=== PATIENT | male | born 1995 | race African-American/Black ===

== ENCOUNTER 2021-10-15 10:08 | Emergency (ER) | payer OTHER, SELFPAY ==
--- NOTE | ~2021-10-15 | US_ITS ---
EXAMINATION: US SCROTUM CLINICAL INFORMATION: Right testicular swelling. COMPARISON: No prior studies available for comparison TECHNIQUE: A sonogram of the scrotum was performed assessing saul-scale appearance and color Doppler flow. Spectral Doppler analysis of the arterial and venous flow were performed in the testes bilaterally. FINDINGS: RIGHT: Right testicle measures 4.4 x 2 x 2.4 cm, volume 11.1 mL. No focal testicular parenchymal lesions are visualized. Spectral Doppler analysis of the arterial and venous flow is normal in the right testis. Right epididymal head is normal in size. No right hydrocele or varicocele is seen. Right epididymal Doppler flow is normal. LEFT: Left testicle measures 4.4 x 2.1 x 2.7 cm, volume 13.1 mL. No focal testicular parenchymal lesions are visualized. Spectral Doppler analysis of the arterial and venous flow is normal in the left testis. Left epididymal head is normal in size. No left hydrocele or varicocele is seen. Left epididymal Doppler flow is normal. Small left hydrocele. US/US scrotum doppler IMPRESSION: *No ultrasound evidence of intratesticular mass or lesion to explain patient's symptoms. Normal intratesticular flow detected bilaterally. Small left hydrocele.
--- NOTE | ~2021-10-15 | US_ITS ---
EXAMINATION: US SCROTUM CLINICAL INFORMATION: Right testicular swelling. COMPARISON: No prior studies available for comparison TECHNIQUE: A sonogram of the scrotum was performed assessing saul-scale appearance and color Doppler flow. Spectral Doppler analysis of the arterial and venous flow were performed in the testes bilaterally. FINDINGS: RIGHT: Right testicle measures 4.4 x 2 x 2.4 cm, volume 11.1 mL. No focal testicular parenchymal lesions are visualized. Spectral Doppler analysis of the arterial and venous flow is normal in the right testis. Right epididymal head is normal in size. No right hydrocele or varicocele is seen. Right epididymal Doppler flow is normal. LEFT: Left testicle measures 4.4 x 2.1 x 2.7 cm, volume 13.1 mL. No focal testicular parenchymal lesions are visualized. Spectral Doppler analysis of the arterial and venous flow is normal in the left testis. Left epididymal head is normal in size. No left hydrocele or varicocele is seen. Left epididymal Doppler flow is normal. Small left hydrocele. US/US scrotum IMPRESSION: *No ultrasound evidence of intratesticular mass or lesion to explain patient's symptoms. Normal intratesticular flow detected bilaterally. Small left hydrocele.
[2021-10-15 10:15] VITALS: BP 144/99; PULSE 79; RESP 18; TEMP 36.6; O2SAT 98; BMI 27.3
--- NOTE | 2021-10-15 10:36 | ED_ITS ---
HPI - Male Genitourinary General Chief complaint: Urogenital-Male Stated complaint: testicular pain Time Seen by Provider: 10/15/21 10:23 Source: patient Mode of arrival: ambulatory Limitations: no limitations History of Present Illness HPI Narrative: 26-year-old male previously healthy here with reports of intermittent pain and swelling to the right testicle for 2 weeks worsened and more consistent since yesterday. Patient denies any penile discharge, urinary frequency, urgency, dysuria, abdominal pain, back pain, fevers, vomiting. Patient is sexually active with 1 female partner. He does not use any contraception Related Data Allergies Allergy/AdvReac Type Severity Reaction Status Date / Time Unable to Assess Allergy Verified 10/15/21 10:30 Review of Systems Review of Systems: Yes all other systems are reviewed and are negative Constitutional: Constitutional: Reports no additional constitutional complaints, Denies body ache(s), Denies chills, Denies fever(s), Denies headache(s) and Denies weakness Eyes: Eyes: Reports no additional eye complaints and Denies change in vision ENT: Reports system reviewed and no additional complaints, except as documented, Denies dizziness, Denies headache(s), Denies nasal congestion, Denies nasal discharge and Denies neck pain Cardiovascular: Cardiovascular: Reports no additional cardiovascular complaints, Denies chest pain, Denies leg edema and Denies dyspnea Respiratory: Respiratory: Reports no additional respiratory complaints, Denies cough and Denies dyspnea Gastrointestinal: Gastrointestinal: Reports no additional gastrointestinal complaints, Denies abdominal pain, Denies diarrhea, Denies nausea and Denies vomiting Genitourinary: Genitourinary: Denies hematuria, Denies dysuria, Denies flank pain, Denies penile discharge, Reports testicular pain, Denies urinary frequency, Denies urinary hesitancy, Denies urinary incontinence and Denies urinary urgency Musculoskeletal: Musculoskeletal: Reports no additional musculoskeletal complaints, Denies back pain, Denies arthralgias, Denies joint swelling, Denies neck pain, Denies numbness and Denies tingling Integumentary/Breasts: Skin/Breast: Reports system reviewed and no additional complaints, except as docu and Denies rash Neurologic: Reports system reviewed and no additional complaints, except as documented, Denies Abnormal speech present, Denies dizziness, Denies headache(s), Denies numbness, Denies tingling and Denies weakness PMFSH Past Medical History Attestation statement: The following information was validated with the patient. Source: old records reviewed and nursing notes reviewed Social History Social History Advance Directives: No Advance Directives Information Provided: No Physical Exam Vital Signs: Vital Signs: Last Vital Signs Temp 98.3 F 10/15/21 13:01 Pulse 60 10/15/21 13:01 Resp 18 10/15/21 13:01 BP 135/76 10/15/21 13:01 Pulse Ox 100 10/15/21 13:01 O2 Del Method 10/15/21 13:01 BMI result Body Mass Index 27.3 Const: General: cooperative, healthy appearing, comfortable and no acute distress Orientation/consciousness: patient oriented x3 Limitations: no limitations HEENT: Head: Yes normal to inspection Eyes: General: appearance normal, both eyes and all related structures Neck: Neck: Yes normal visual inspection Chest: Chest palpation & inspection: normal inspection of the chest Resp: Effort & Inspection: normal respiratory effort GI: Inspection: Yes normal to inspection : Other: Research Program Manager Bianca Male General Exam: Yes normal external exam Penis: uncircumcised Meatus: meatus normal Scrotum: scrotum normal Testes: no testicular swelling and testicular tenderness (Right-side) Back/Spine/Pelvis: Thoracic/Lumbar Spine: thoracic and lumbar spine normal to inspection Skin: General skin exam: no rashes or lesions noted Neuro: General: patient oriented x3 and moves all extremities Cognition (Neuro): normal cognition Speech: No Abnormal speech present Gait exam (N euro): Normal gait present Extrem: General: Yes normal to inspection Course Course Course Narrative: 26-year-old male here with intermittent right testicular pain for the last 2 weeks that is constant and worsened over the last 24 hours with no associated urinary symptoms, fevers, vomiting, penile discharge. Will check ultrasound, UA, CT NG testing Reevaluation(s) Reevaluation #1: UA shows no signs of infection. CT NG testing is pending. Patient has low concern for STD. He therefore we will hold on treatment. He will need to return if he is positive. Ultrasound shows a left hydrocele. No evidence of torsion or mass. Patient can follow up with Urology for his testicular pain. Reviewed worrisome signs and symptoms of when to return to the emergency department. Comfortable discharge home. Time: 13:30 MDM - Male Genitourinary MDM Narrative Medical decision making narrative: Epididymitis, testicular torsion Medical Records Attestation: I reviewed the patient's medical records. Lab Data Attestation: I reviewed the patient's lab results. Labs: Lab Results 10/15/21 Range/Units 12:52 Urine Color YELLOW Urine Appearance CLEAR Urine pH 6.0 (5.0-8.0) Ur Specific Brun[place] 1.025 (1.005-1.025) Urine Protein NEG (NEG-TRACE) MG/DL Urine Glucose (UA) NEG (NEG) MG/DL Urine Ketones NEG (NEG) MG/DL Urine Blood NEG (NEG) Urine Nitrite NEG (NEG) Ur Leukocyte Esterase NEG (NEG) Imaging Data testicular US: Attestation: I personally reviewed and interpreted this imaging study as follows: Radiologist's impression: [place] [id number] Ultrasound Report Signed Patient: Juan Rodas MR#: [id number] : 1995 Acct:[id number] Age/Sex: 26 / M ADM Date: 10/15/21 Loc: .ED Attending Dr: Ordering Physician: Mary Gauthier NP Date of Service: 10/15/21 Procedure(s): US scrotum doppler Accession Number(s): [id number] cc: Mary Gauthier NP~ EXAMINATION: US SCROTUM CLINICAL INFORMATION: Right testicular swelling. COMPARISON: No prior studies available for comparison TECHNIQUE: A sonogram of the scrotum was performed assessing saul-scale appearance and color Doppler flow. Spectral Doppler analysis of the arterial and venous flow were performed in the testes bilaterally. FINDINGS: RIGHT: Right testicle measures 4.4 x 2 x 2.4 cm, volume 11.1 mL. No focal testicular parenchymal lesions are visualized. Spectral Doppler analysis of the arterial and venous flow is normal in the right testis. Right epididymal head is normal in size. No right hydrocele or varicocele is seen. Right epididymal Doppler flow is normal. LEFT: Left testicle measures 4.4 x 2.1 x 2.7 cm, volume 13.1 mL. No focal testicular parenchymal lesions are visualized. Spectral Doppler analysis of the arterial and venous flow is normal in the left testis. Left epididymal head is normal in size. No left hydrocele or varicocele is seen. Left epididymal Doppler flow is normal. Small left hydrocele. US/US scrotum doppler IMPRESSION: *No ultrasound evidence of intratesticular mass or lesion to explain patient's symptoms. ? Normal intratesticular flow detected bilaterally. ? Small left hydrocele. Discharge Plan Discharge Clinical Impression: Left hydrocele Patient Disposition: Home, Self-Care Instructions: Hydrocele (ED) Additional Instructions: Your urine testing shows no signs of bladder infection. We will call you if your STD testing is positive an you need treatment Follow-up with urology Referrals: Gulshan Topete MD [Physician] - 2 weeks
[2021-10-15 13:01] VITALS: BP 135/76; PULSE 60; RESP 18; TEMP 36.8; O2SAT 100
[2021-10-15 13:09] LABS: Appearance Urine CLEAR; Color Urine YELLOW; Glucose Urine UA NEG (NEG); Leukocyte Esterase Urine NEG (NEG); Nitrite Urine NEG (NEG); Specific Gravity - Urine 1.025 (1.005-1.025); Urine Blood NEG (NEG); Urine Ketones NEG (NEG); Urine Protein NEG (NEG-TRACE)
[2021-10-15 13:33] LABS: CT PCR NOT DETECTED (Not Detect.); NG PCR NOT DETECTED (Not Detect.)
== END 2021-10-15 13:39 | disposition home or self-care (01) ==
PROVIDERS: Nurse Practitioner Family; Emergency Provider Emergency Medicine
DX: N43.3 Hydrocele, unspecified (principal); N50.811 Right testicular pain
CPT/HCPCS: 76870; 81003; 87491; 87591; 93975; 99283; 99284